=== PATIENT | female | born 1980 | race Caucasian/White ===

== ENCOUNTER 2018-08-20 15:27 | Inpatient (IN) | payer SELFPAY ==
[2018-08-20] MEDS ORDERED: Methylergonovine 0.2 MG/1 ML Amp IM PRN (17:23)
[2018-08-20] MEDS ORDERED: Tranexamic Acid 1,000 MG in Sodium Chloride 0.9% 100 ML IV PRN (17:23)
[2018-08-20] MEDS ORDERED: Ondansetron 4 MG/2 ML SDV IV PRN (17:23)
[2018-08-20] MEDS ORDERED: Lactated Ringers 500 ML IV ONE (17:23)
[2018-08-20] MEDS ORDERED: Carboprost Tromethamine 250 MCG/1 ML Amp IM PRN (17:23)
[2018-08-20] MEDS ORDERED: Misoprostol 400 MCG (4 X 100 MCG TAB) RECTAL PRN (17:23)
[2018-08-20] MEDS ORDERED: Sodium Chloride 0.9% 10 ML Syringe FLUSH PRN (17:23)
[2018-08-20] MEDS ORDERED: Acetaminophen 325 MG Tab PO PRN ×2 (17:23→17:26)
[2018-08-20] MEDS ORDERED: Lidocaine 1% 30 ML SDV INJECT PRN (17:23)
[2018-08-20] MEDS ORDERED: Oxytocin/Normal Saline 30 UNIT/500 ML BAG IV SCH ×2 (17:30)
[2018-08-20] MEDS ORDERED: Lactated Ringers 1,000 ML IV SCH (17:30)
[2018-08-20] MEDS: Misoprostol 25 MCG (1/4 of 100 MCG) Tab VAG PRN ×2 (17:58→22:31)
[2018-08-21] MEDS: Misoprostol 25 MCG (1/4 of 100 MCG) Tab VAG PRN (04:01)
[2018-08-21] MEDS ORDERED: Nalbuphine 10 MG/1 ML Vial IM PRN (13:13)
[2018-08-21] MEDS ORDERED: Docusate Sodium 100 MG Cap PO PRN (13:58)
[2018-08-21] MEDS ORDERED: Simethicone 80 MG Tab.Chew PO PRN (13:58)
[2018-08-21] MEDS ORDERED: Benzocaine/Menthol 20%-0.5% Spray 56 GM Canister TOP PRN (13:58)
--- NOTE | 2018-08-22 04:20 | DEL ---
DATE: 08/21/2018 PREPROCEDURE DIAGNOSES: 1. 39 and 0/7 weeks' gestation. 2. 10, para 9-0-0-9. 3. Grand multiparous patient with advanced maternal age. 4. Insufficient care. 5. Vaginal bleeding in the third trimester. Suspect small occult placental abruption. 6. Group B strep negative. Blood type B positive. Rubella status unknown. 7. The patient refuses vaccinations. POSTPROCEDURE DIAGNOSES: 1. 39 and 0/7 weeks' gestation. 2. 10, para 10-0-0-10. 3. Grand multiparous patient with advanced maternal age. 4. Insufficient care. 5. Vaginal bleeding in the third trimester. Suspect small occult placental abruption. 6. Group B strep negative. Blood type B positive. Rubella status unknown. 7. The patient refuses vaccinations. 8. Delivery of viable male . 9. Small abruption confirmed. 10.First-degree laceration that did not require repair. BRIEF HISTORY: A 38-year-old patient with the above-listed diagnoses was brought into the hospital for induction of labor yesterday after presenting to the hospital with vaginal bleeding including nickel-sized clot. Testing was very reassuring and the baby seemed to be doing well. The bleeding had initially stopped, but based on the patient's history and risk factors, it was felt best to proceed with induction of labor in a monitored setting and with understanding that if any emergency arose, a section will be immediately available. The patient's labor course was initiated with 3 doses of Cytotec and then converted over to Pitocin, after which she proceeded nicely over the course of about 4 hours through stage I labor and only needed to push for about 4 contractions before excellent delivery noted below. DESCRIPTION OF PROCEDURE: With the patient in dorsal lithotomy position, she delivered a viable male infant over intact perineum in the OA position. was dried and stimulated and mouth and nose bulb suctioned, and baby placed on mother's abdomen for skin to skin. After approximately a 5-minute delay, I could see bleeding consistent with the placenta releasing and the umbilical cord was still pulsating, but doubly clamped and cut at that time and cord blood sample obtained. Placenta delivered intact with gentle cord traction and concomitant uterine massage. The placenta was then inspected and I could see a small area of blood clot adherent to the membranes as well as a less than 1 cm size of what is consistent with placental abruption at the edge of the placenta where it met the membrane. Labia and vagina were inspected, and there was a small first-degree laceration, able to be controlled hemostatically with pressure alone and repair was not necessary. Mother and baby were doing well and going to stay skin to skin and to have initiated. COMPLICATIONS: None. FINDINGS: 1. Viable male weighing 3889 g, 8 pounds 0.6 ounces. scores of 9 and 9. time 1337 hours. 2. Verified small approximately 1 cm abruption at the margin of the placenta. Of note, the patient did also have a very large blood clot in the mechanics supervisor hours on the day of delivery and her bleeding was monitored very closely throughout her labor process as was status. ESTIMATED BLOOD LOSS: 350 mL. DISPOSITION: Mother and baby to stay in the room to initiate maternal child bonding. EDUARDA /[id number] AMY
--- NOTE | 2018-08-24 08:48 | DISCH ---
ADMITTING DIAGNOSES: 1. 39 and 0/7 weeks' intrauterine by last menstrual. 2. 10, para 9-0-0-9. 3. Grand multiparous patient. 4. Advanced maternal age. 5. Insufficient care. 6. Third trimester bleeding as reason for admission and induction. 7. Refusal of routine vaccinations. 8. Group B strep negative. Rubella status, unknown. Blood type B positive. 9. Hypothyroidism. DISCHARGE DIAGNOSES: 1. 39 and 0/7 weeks' intrauterine by last menstrual. 2. 10, now para 10-0-0-10. 3. Grand multiparous patient. 4. Advanced maternal age. 5. Insufficient care. 6. Third trimester bleeding as reason for admission and induction. 7. Refusal of routine vaccinations. 8. Group B strep negative. Rubella status, unknown. Blood type B positive. 9. Small abruption confirmed. 10.First-degree lacerations that did not require repair. 11.Hypothyroidism. BRIEF HISTORY: A 38-year-old female with the above-listed diagnoses presented with vaginal bleeding in the third trimester with nickel size clots. testing was reassuring with biophysical score of 10/10. Bleeding initially stopped, but based on the patient's history and other risk factors and being 39 weeks' gestation, it was best to proceed with induction of labor under monitored conditions rather than proceeding with discharge home for delivery as she had previously planned. HOSPITAL COURSE: Good. Although the bleeding had initially stopped, she did have another bleeding episode during the course of her labor, which was not consistent with bloody show and she actually passed a good-size clot. She was induced with 3 doses of Cytotec in an effort to be the least medically invasive as possible, but then did need to be converted over to Pitocin. Once in active labor, she was in stage I for only about 4 hours and then pushed through only about 4 contractions. Delivery itself was uncomplicated. See that note for full details. Baby is a viable male weighing 3889 g, 8 pounds 0.6 ounces. scores of 9 and 9. Placenta was inspected, and there was a small 1 cm area of abruption on the margin of placenta with some clotted blood adherent to the membranes adjacent to that location. After delivery, the patient did well. She was ambulating, tolerating regular diet, requesting discharge home that same day as soon as possible. DISCHARGE CONDITION: Good. DISCHARGE PHYSICAL EXAMINATION: Vital Signs: Temperature is 97.0, pulse 84, blood pressure 119/68, respiratory rate of 16. Heart: Regular without murmur. Lungs: Clear bilaterally. Abdomen: Soft and nontender. Fundus firm and below the umbilicus. Extremities: No edema, erythema, or tenderness noted. LABORATORY DATA: Admission hemoglobin 13.7, platelets 119. Blood loss at delivery was insignificant and therefore a repeat CBC was not performed. DISCHARGE MEDICATIONS: None prescribed. The patient can continue her vitamins and levothyroxine 100 mcg daily. DISPOSITION: Home with family. FOLLOWUP: The patient advised to have 6-week followup with myself or with her nurse ambulance operations supervisor. She also needs to have her thyroid rechecked after her 6-week to see if that dosing can be decreased. [facility] /[id number]
== END 2018-08-21 19:10 | disposition home or self-care (01) | DRG 807 ==
LOC: DL.OBCHECK 15:27 → DL.OB 17:23 → UNDOADMOB 18:12 → DL.OB 18:12 → OBSVTOIN 08-21 13:37
PROVIDERS: ADMIT Family Medicine; ATTEND Family Medicine
PROC: 3E033VJ Introduction of Other Hormone into Peripheral Vein, Percutaneous Approach (ICD-10-PCS; principal; 2018-08-21)
PROC: 6A550ZT Pheresis of Cord Blood Stem Cells, Single (ICD-10-PCS; principal; 2018-08-21)
PROC: 10E0XZZ Delivery of Products of Conception, External Approach (ICD-10-PCS; principal; 2018-08-21)
DX: O45.93 Premature separation of placenta, unspecified, third trimester (principal); Z37.0 Single live birth; Z3A.39 39 weeks gestation of pregnancy; O99.284 Endocrine, nutritional and metabolic diseases complicating childbirth; E03.9 Hypothyroidism, unspecified; O70.0 First degree perineal laceration during delivery; Z67.20 Type B blood, Rh positive; Z28.21 Immunization not carried out because of patient refusal
CPT/HCPCS: 36415; 59025; 59409; 85027; A9270-GY; J2590; J7120

== ENCOUNTER 2021-08-06 11:57 | Inpatient (IN) | payer SELFPAY ==
[2021-08-06] MEDS ORDERED: Ondansetron 4 MG/2 ML SDV IVPUSH PRN (12:17)
[2021-08-06] MEDS ORDERED: Misoprostol 400 MCG (4 X 100 MCG TAB) RECTAL PRN (12:17)
[2021-08-06] MEDS ORDERED: Acetaminophen 325 MG Tab PO PRN (12:17)
[2021-08-06] MEDS ORDERED: Lidocaine 1% 30 ML SDV INJECT PRN (12:17)
[2021-08-06] MEDS ORDERED: fentaNYL 100 MCG/2 ML SDV IVPUSH PRN (12:17)
[2021-08-06] MEDS ORDERED: Methylergonovine 0.2 MG/1 ML Amp IM PRN (12:17)
[2021-08-06] MEDS ORDERED: Tranexamic Acid 1,000 MG in Sodium Chloride 0.9% 100 ML IV PRN (12:17)
[2021-08-06] MEDS ORDERED: Lactated Ringers 1,000 ML IV ONE (12:17)
[2021-08-06] MEDS ORDERED: Carboprost Tromethamine 250 MCG/1 ML Amp IM PRN (12:17)
[2021-08-06] MEDS ORDERED: Nalbuphine 10 MG/1 ML Vial IM ONE (12:19)
[2021-08-06] MEDS ORDERED: Lactated Ringers 1,000 ML IV SCH (12:30)
[2021-08-06] MEDS ORDERED: Oxytocin/Normal Saline 30 UNIT/500 ML BAG IV SCH (12:30)
[2021-08-07] MEDS ORDERED: Simethicone 80 MG Tab.Chew PO PRN (02:12)
[2021-08-07] MEDS ORDERED: Acetaminophen 325 MG Tab PO PRN (02:12)
[2021-08-07] MEDS ORDERED: Ibuprofen 800 MG Tab PO PRN (02:12)
[2021-08-07] MEDS ORDERED: Docusate Sodium 100 MG Cap PO PRN (02:12)
[2021-08-07] MEDS ORDERED: Tranexamic Acid 1,000 MG in Sodium Chloride 0.9% 100 ML IV PRN (02:12)
[2021-08-07] MEDS ORDERED: Carboprost Tromethamine 250 MCG/1 ML Amp IM PRN (02:12)
[2021-08-07] MEDS ORDERED: Misoprostol 400 MCG (4 X 100 MCG TAB) RECTAL PRN (02:12)
[2021-08-07] MEDS ORDERED: Benzocaine/Menthol 20%-0.5% Spray 78 GM Cannister TOP PRN (02:12)
[2021-08-07] MEDS ORDERED: Oxytocin 10 Units/1 ML SDV IM PRN (02:12)
[2021-08-07] MEDS ORDERED: Witch Hazel Medicated Pads 100/Jar TOP PRN (02:14)
--- NOTE | 2021-08-07 03:09 | DEL ---
DATE: 08/07/2021 PREPROCEDURE DIAGNOSES: 1. 41 and 2/7 weeks' gestation. 2. Premature rupture of membranes. 3. Grand multiparous patient. 4. 11, para 10-0-0-10. 5. Placental cyst. 6. Advanced maternal age. 7. Blood type B positive. GBS negative. Declined rubella testing. 8. Insufficient care. 9. Hypothyroidism. POSTPROCEDURE DIAGNOSES: 1. 41 and 2/7 weeks' gestation. 2. Premature rupture of membranes. 3. Grand multiparous patient. 4. 11, para 11-0-0-11. 5. Placental cyst. 6. Advanced maternal age. 7. Blood type B positive. GBS negative. Declined rubella testing. 8. Insufficient care. 9. Hypothyroidism. 10.Status post spontaneous vaginal delivery without complications. BRIEF HISTORY: A 41-year-old female presented to the hospital this morning after spontaneous rupture of membranes at home at approximately 10:45 a.m. She was reluctant to have any Pitocin initiated and we tried to let her labor on her own, but contractions were not really kicking in, tried breaking a forebag of water with good result, but that did not produce adequate contractions either and she was making insufficient cervical change, so Pitocin augmentation was started, and after that labor progressed within the next 4 or so hours, total stage 1 I have as 15 hours, stage 2 was only 1 minute with details as below. Please see her admission history and physical for full details. PROCEDURE: The patient in dorsal lithotomy position, delivered a viable male infant in the OA position over intact perineum. When baby delivered, umbilical cord was noted to be tangled around the legs. He was dried, stimulated, and mouth and nose were bulb suctioned. Baby then placed upon mother's abdomen. After the cord stopped pulsating, 3-vessel umbilical cord was doubly clamped and cut, and cord blood sample obtained. Placenta was then delivered by gentle cord traction and concomitant uterine massage, inspected, and intact. There was a 3- 4 cm cyst noted to be actually attached to the umbilical cord. Placenta was otherwise intact. COMPLICATIONS: None. FINDINGS: Viable male . Weight 3975g, 8# 12 oz. score 9 and 9. DISPOSITION: Mother and baby to stay in the room to initiate breast-feeding and bonding. Planning early discharge. MOD /[id number]
[2021-08-07] MEDS ORDERED: Prenatal Multivitamin with Calcium/Folic Acid/Iron Tab PO SCH (09:00)
--- NOTE | 2021-08-11 00:34 | DISCH ---
ADMITTING DIAGNOSES: 1. A 41 and 1/7 weeks gestation based on last menstrual period. 2. 11, para 10-0-0-10. 3. Placental cyst adjacent to the umbilical cord insertion. 4. Grand multiparous. 5. Advanced maternal age. 6. Group B strep negative. 7. Declined rubella testing. 8. Blood type B positive. 9. Insufficient care. 10.Hypothyroidism of . DISCHARGE DIAGNOSES: 1. A 41 and 1/7 weeks gestation based on last menstrual. 2. 11, para 10-0-0-10. 3. Placental cyst adjacent to the umbilical cord insertion. 4. Grand multiparous. 5. Advanced maternal age. 6. Group B strep negative. 7. Declined rubella testing. 8. Blood type B positive. 9. Insufficient care. 10.Hypothyroidism of . 11.Premature rupture of membranes. 12.Status post spontaneous vaginal delivery. 13.Pitocin augmentation/induction of labor. BRIEF HISTORY: A 41-year-old female with above-listed diagnoses, presented to the hospital after having spontaneous rupture of membranes at home and was not making adequate cervical change in the office. She was reluctant to undergo any sort of augmentation of labor, but ultimately after several hours agreed for Pitocin and after about a total of 15 hours in stage I and 1 minute of pushing, she delivered a viable male without complications. No lacerations and no anesthesia. Baby's score are 9 and 9, weight 3975 g, 8 pounds 12 ounces, length 20-1/2 inches. HOSPITAL COURSE: Brief. After delivery, the patient did well. No issues with hemorrhage and requested early discharge at less than 6 hours and was declining any MMR or other vaccines. DISCHARGE CONDITION: Good. PHYSICAL EXAMINATION: Temperature is 98.0, pulse 76, blood pressure 118/72, and respiratory rate 18. HEART: Regular without obvious murmur. LUNGS: Clear bilaterally. ABDOMEN: Soft. Fundus firm below the umbilicus. EXTREMITIES: Trace edema. No erythema or tenderness noted. DISPOSITION: Home with family. MEDICATIONS: Continue vitamin 1 daily. May use [id number] ibuprofen or Tylenol as needed for pain or discomfort. FOLLOWUP: The patient is encouraged to do a 6-week examination. However, she reports she will likely do this with her nurse organ installer. INSTRUCTIONS: Routine post vaginal delivery instructions were provided. [facility] /[id number]
== END 2021-08-07 07:20 | disposition home or self-care (01) | DRG 807 ==
LOC: DL.OBCHECK 11:57 → DL.OB 13:47 → OBSVTOIN 08-07 01:41
PROVIDERS: ADMIT Family Medicine; ATTEND Family Medicine
PROC: 10E0XZZ Delivery of Products of Conception, External Approach (ICD-10-PCS; principal; 2021-08-07)
DX: O48.0 Post-term pregnancy (principal); Z37.0 Single live birth; Z3A.41 41 weeks gestation of pregnancy; O99.284 Endocrine, nutritional and metabolic diseases complicating childbirth; E03.9 Hypothyroidism, unspecified; Z20.822 Contact with and (suspected) exposure to COVID-19
CPT/HCPCS: 36415; 59409; 85027; A9270-GY; J2590; J7120; U0002